=== PATIENT | male | born 1930 | race Caucasian/White ===

== ENCOUNTER 2020-05-30 21:49 | Observation (INO) | payer MEDICARE ==
[2020-05-31 00:41] VITALS: BMI 24.7
[2020-05-31] MEDS ORDERED: Acetaminophen 650 MG Suppository PR PRN (01:36)
[2020-05-31] MEDS ORDERED: Nitroglycerin 0.4 MG TAB (25 Tab Bottle) SL PRN (01:40)
[2020-05-31] MEDS ORDERED: Polyvinyl Alcohol 1.4%/Povidone 0.6% Opth Drops EA EYE PRN (01:43)
[2020-05-31] MEDS ORDERED: Aspirin Chewable 81 MG TAB PO SCH (02:00)
--- NOTE | 2020-05-31 02:12 | PDOC.HHP ---
Hospitalist HPI - History of Present Illness History of Present Illness: ADMISSION DATE: 05/31/2020 TIME OF ASSESSMENT: 0130 PRIMARY CARE PHYSICIAN: Out of town CHIEF COMPLAINT: Fatigue HPI: This is an 89-year-old gentleman who presented to the emergency department in [place] with complaints of sudden onset exhaustion/fatigue. The patient states that it lasted a few minutes and was followed by a sudden nausea. He states he became worried that it might be signs of Covid and therefore opted to come to the emergency department in order to be tested. He denies experiencing any chest pain palpitations or shortness of breath in any moment. Denies having any recent fevers, chills or sweats. States he has had a very good appetite in recent days without any nausea or vomiting. No abdominal pain or bowel changes. Denies any urinary symptoms. On arrival to the emergency department he is feeling significantly better. He had laboratory studies done and after speaking with the ED physician the decision was made to work him up for possible cardiac event. EKG done in the emergency department prior to transfer showed a heart rate of 72, normal sinus rhythm with unifocal PVCs. Repeat EKG showed sinus bradycardia with a rate of 56. He was given aspirin 324 mg p.o. x1 and transferred here for further cardiac work-up. A chest x-ray done in the emergency department showed no evidence of acute cardiopulmonary process. Labs showed a white cell count of 4.5, hemoglobin 14, hematocrit 43.5, platelets 171, sodium 139, potassium 3.5, BUN 21, creatinine 0.98, GFR 72, glucose 141, LFTs normal. Lipase normal. Troponin negative x2. PAST MEDICAL HISTORY: 1. Restless leg syndrome 2. Dementia 3. History of prostate cancer 4. GERD 5. Hard of hearing. PAST SURGICAL HISTORY: 1. Cholecystectomy SOCIAL HISTORY: Patient lives alone and denies any history of tobacco use alcohol consumption or drug use. FAMILY HISTORY: Noncontributory. No history of heart disease in his family. ALLERGIES: No known drug allergies CURRENT MEDICATIONS: 1. Gabapentin 300 mg p.o. 3 times daily 2. Donepezil 5 mg p.o. daily 3. Omeprazole 40 mg p.o. daily 4. Ropinirole 3 mg p.o. daily 5. Artificial tears 6. Latanoprost 7. Timolol 8. Carbidopa/levodopa 25/100 mg 1 tablet at bedtime - Exam General Appearance: NAD, awake alert Eye: PERRL, anicteric sclera ENT: normocephalic atraumatic, no oropharyngeal lesions, moist mucosa Neck: supple, symmetric, no lymphadenopathy Heart: RRR, no murmur, no gallops, no rubs, normal peripheral pulses Respiratory: CTAB, no wheezes, no rales, no ronchi, normal chest expansion Gastrointestinal: soft, non-tender, non-distended, normal bowel sounds, no guarding, no rigidity Extremities: no edema Skin: normal turgor, no lesions, no rashes Neurological: cranial nerve grossly intact, normal sensation to touch Musculoskeletal: normal tone, normal strength, no muscle wasting Psychiatric: normal affect, normal behavior, A&O x 3 Hospitalist H&P A/P - Problem (1) Fatigue Code(s): R53.83 - OTHER FATIGUE Status: Acute (2) Nausea Code(s): R11.0 - NAUSEA Status: Acute (3) Restless leg syndrome Status: Chronic (4) GERD (gastroesophageal reflux disease) Code(s): K21.9 - GASTRO-ESOPHAGEAL REFLUX DISEASE WITHOUT ESOPHAGITIS Status: Chronic (5) Dementia Code(s): F03.90 - UNSPECIFIED DEMENTIA WITHOUT BEHAVIORAL DISTURBANCE Status: Chronic (6) History of prostate cancer Code(s): Z85.46 - PERSONAL HISTORY OF MALIGNANT NEOPLASM OF PROSTATE Status: Chronic - Plan Plan: Patient with acute feeling of exhaustion that resolved after a few minutes and was followed by nausea without vomiting. Denies any chest pain or sob. No palpitations or other symptoms. Afebrile without any respiratory symptoms. Transferred for ACS work-up. We will continue cardiac monitoring Keep patient NPO Continue aspirin. Continue to trend troponins Will check lipid panel with AM labs, mg and TSH Cardiology consult placed as per Dr. Reed recommendations. Patient resting and symptom free at present.
[2020-05-31] MEDS ORDERED: Gabapentin 300 MG CAP PO SCH (02:15)
[2020-05-31] MEDS: Acetaminophen 325 MG TAB PO PRN (03:19)
[2020-05-31 03:36] LABS: #Eosinphils 0.1 thou/uL (0.0-0.7); #Lymphocytes 0.7 thou/uL (1.20-3.40); #Monocytes 0.4 thou/uL (0.11-0.59); #Neutrophils 2.1 thou/uL (1.40-6.50); %Basophils 0.1 % (0.0-1.0); %Eosinophils 4.3 % (0.0-10.0); %Lymphocytes 20.3 % (21.0-51.0); %Monocytes 12.1 % (0.0-10.0); %Neutrophils 63.3 % (42.0-75.0); Hemoglobin 13.4 g/dL (14.0-18.0); Mean Corpuscular HGB CONC 34.9 g/dL (32.0-36.0); Mean Corpuscular Hemoglobin 33.4 pg (27.0-31.0); Mean Corpuscular Volume 95.5 fL (78.0-98.0); Mean Platelet Volume 7.5 fL (7.4-10.4); Platelet Count 157 thou/uL (130-400); RBC Distribution Width 11.2 % (11.5-14.5); Red Blood Cell (RBC) Count 4.03 mill/uL (4.70-6.10); White Blood Cell (WBC) Count 3.3 thou/uL (4.8-10.8)
[2020-05-31 03:56] LABS: Anion Gap 11 mmol/L (10-20); BUN (Urea Nitrogen) 22 mg/dL (8.4-25.7); Calc. Creatinine Clearance 72 mL/min (70-130); Calcium 8.9 mg/dL (7.8-10.44); Carbon Dioxide 27 mmol/L (23-31); Cardiac Risk 4.3 (Less than 4.5); Chloride 106 mmol/L (98-107); Cholesterol 172 mg/dl (< 200 Desired); Glucose 172 mg/dL (83-110); HDL Cholesterol 40 mg/dL (>60 Neg Risk); LDL Cholesterol, Calculated 106 mg/dL; Potassium 3.3 mmol/L (3.5-5.1); Sodium 141 mmol/L (136-145); Triglycerides 129 mg/dL (Less than 150)
[2020-05-31 03:58] LABS: Troponin I 0.016 ng/mL (< 0.028)
[2020-05-31] MEDS ORDERED: Potassium Chloride 20 MEQ TAB PO SCH (04:15)
[2020-05-31 04:51] LABS: Troponin I Less than 0.010 ng/mL (< 0.028)
[2020-05-31] MEDS ORDERED: FLU VACC QS2020-21(65YR UP)/PF 240 MCG/0.7 ML SYRINGE IM ONE (09:00)
[2020-05-31] MEDS ORDERED: Famotidine 20 MG TAB PO SCH (09:00)
[2020-05-31] MEDS: Aspirin 81 mg Enteric Coated Tablet PO SCH (09:49)
[2020-05-31] MEDS: Donepezil HCl 5 MG TAB PO SCH (09:50)
[2020-05-31] MEDS: Gabapentin 300 MG CAP PO SCH ×3 (09:51→22:29)
[2020-05-31] MEDS: rOPINIRole HCl 1 MG TAB PO SCH (09:52)
[2020-05-31] MEDS: Potassium Chloride 20 MEQ TAB PO SCH ×2 (11:15→17:57)
[2020-05-31 12:08] LABS: Phosphorus 3.7 mg/dL (2.3-4.7)
[2020-05-31 13:08] LABS: Bacteria/HPF None Seen HPF (None Seen); Bilirubin Negative (Negative); Blood, Urine Negative (Negative); Clarity Clear (Clear); Glucose, Urine (Dipstick) Normal (Negative); Ketone, Urine Negative (Negative); Leukocyte Negative Leu/uL (Negative); Nitrite Negative (Negative); Protein, Urine (Dipstick) Negative (Neg-Trace); RBC/HPF 0-3 HPF (0-3); Specific Gravity, Urine 1.011 (1.002-1.036); Squamous Epithelial None Seen HPF (0-3); Urobilinogen Normal mg/dL (Less than 2); WBC/HPF 0-3 HPF (0-3); pH, Urine 6.5 (5.0-9.0)
[2020-05-31 13:11] LABS: Urine Culture Reflex No No
[2020-05-31 15:52] LABS: SARS-CoV-2 MS2 Positive; SARS-CoV-2 N Gene Negative; SARS-CoV-2 S Gene Negative; SARS-CoV-2 by NAA Not Detected (NotDetected); SARS-CoV-2 orf1ab Negative
[2020-05-31] MEDS ORDERED: Carbidopa/Levodopa 25-100 mg Tablet PO SCH (17:00)
--- NOTE | 2020-05-31 17:30 | ULT ---
EXAM: Carotid ultrasound HISTORY: Near syncope COMPARISON: None TECHNIQUE: Multiplanar grayscale and color Doppler images were obtained in a carotid ultrasound. Spec tral analysis of the Doppler waveforms were performed. FINDINGS: A large amount of plaque is seen in the proximal right ICA and a small amount of plaque is seen on th e left. The Doppler waveforms are normal in the visualized vessels. Peak systolic velocity in the right internal carotid artery 324 cm/s. Peak systolic velocity in the right common carotid artery 58 cm/s. The right ICA/CCA ratio is 5.6. Peak systolic velocity in the left internal carotid artery 107 cm/s. Peak systolic velocity in the left common carotid artery 66 cm/s. The left ICA/CCA ratio is 1.6. Both vertebral arteries demonstrate antegrade flow without focal stenosis IMPRESSION: Severe stenosis of greater than 70% per velocity criteria and systolic to diastolic ratio in the righ t internal carotid artery. A CTA of the neck is recommended for further evaluation.
[2020-05-31] MEDS: Timolol 0.5% Ophth Soln 5 ml Bottle EA EYE SCH (22:29)
[2020-05-31] MEDS: Latanoprost 0.005% Ophth Soln 2.5 ml Bottle EA EYE SCH (22:29)
[2020-05-31] MEDS ORDERED: Sodium Chloride 0.9% 1,000 ML IV SCH (23:55)
[2020-06-01] MEDS: Acetaminophen 325 MG TAB PO PRN (01:23)
[2020-06-01 05:00] LABS: Potassium 4.2 mmol/L (3.5-5.1)
[2020-06-01 07:23] VITALS: TEMP 97.5
--- NOTE | 2020-06-01 08:30 | CT ---
CT ANGIOGRAM NECK WITH CONTRAST: DATE: 06/01/2020 HISTORY: 89-year-old male with severe carotid stenosis found on carotid Doppler ultrasound. Near-syncope. At 8:27 AM, 06/01/2020, Dr. Alcala notified Dr. Lopez of the critical stenosis on the right and severe s tenosis on the left by telephone. TECHNIQUE: After IV contrast injection, arterial bolus chasing technique scan performed from AP window to skull base Coronal and sagittal 3-D MIP reconstructions. FINDINGS: Brachiocephalic: Normal Right subclavian: Normal Left subclavian: No high-grade stenosis. Right common carotid: No high-grade stenosis. Left common carotid: Normal proximal and mid segments. Soft plaque at distal segment causing stenosis , which is mild beginning 1.5 cm proximal to the carotid bifurcation, then becomes severe, approximately 75%, at the carotid bulb. Right vertebral: Calcified plaque at origin causing at least mild stenosis. No stenosis identified in the rest of this vessel. Left vertebral: Dominant. Prominent calcified plaque at origin causing at least mild stenosis. No adia nosis in the rest of the vessel. Right internal carotid: Atheromatous plaque, both heavily calcified and noncalcified components from origin to approximately 1 cm distal to the origin, where there is very severe, approximately 90-99% stenosis. The rest of the right internal carotid artery is slightly diffusely smaller in caliber comp ared to the left. Left internal carotid: 75% stenosis at the proximal portion of left carotid bulb as mentioned above. The rest of the left internal carotid does not have significant stenosis. There is mild plaque in the proximal left internal carotid causing mild stenosis. IMPRESSION: 1) critical stenosis at proximal right internal carotid artery. 2) 75% stenosis at distal most left common carotid artery at carotid bulb
[2020-06-01] MEDS: Potassium Chloride 20 MEQ TAB PO SCH (08:52)
[2020-06-01] MEDS: Aspirin 81 mg Enteric Coated Tablet PO SCH (08:58)
[2020-06-01] MEDS: Gabapentin 300 MG CAP PO SCH (08:59)
[2020-06-01] MEDS: Donepezil HCl 5 MG TAB PO SCH (09:00)
[2020-06-01] MEDS ORDERED: Cyanocobalamin (Vitamin B-12) 1,000 MCG TAB PO SCH (09:00)
[2020-06-01] MEDS ORDERED: Timolol 0.5% Ophth Soln 5 ml Bottle EA EYE SCH (09:00)
[2020-06-01] MEDS: Latanoprost 0.005% Ophth Soln 2.5 ml Bottle EA EYE SCH (09:01)
[2020-06-01] MEDS: Timolol 0.5% Ophth Soln 5 ml Bottle EA EYE SCH (09:01)
[2020-06-01] MEDS: rOPINIRole HCl 1 MG TAB PO SCH (09:09)
[2020-06-01 11:50] VITALS: BP 192/99
[2020-06-01] MEDS ORDERED: Iopamidol-370 76% 500 ML 1 ML ONE (12:47)
--- NOTE | 2020-06-01 13:26 | CON ---
DATE OF CONSULTATION: 06/01/2020 REQUESTING PHYSICIAN: Dr. Lopez. CHIEF COMPLAINT: Fatigue. HISTORY OF PRESENT ILLNESS: The patient is an 89-year-old man with minimal past medical history. He describes sitting at his computer when he suddenly felt an overwhelming sense of fatigue and tiredness that was followed by some mild nausea, but no vomiting. He had not had any other symptoms either focal or constitutional. He was concerned that this might represent onset of COVID symptoms and he sought medical care at a local emergency room. His COVID testing proved to be negative. There was a question raised about whether this might be an atypical presentation of coronary event and he was transferred here and placed on telemetry for observation. His troponins trended negative. Screening carotid ultrasonography suggested carotid disease worse on the right than on the left and this was corroborated by CT angiography. On my questioning, the patient denies any antecedent eye, facial, speech, or extremity symptoms consistent with TIAs. PAST MEDICAL HISTORY: Significant for restless legs syndrome, prostate cancer, GE reflux symptoms, and "dementia." HOME MEDICATIONS: 1. Neurontin 300 mg t.i.d. 2. Donepezil 5 mg a day. 3. Omeprazole 40 mg a day. 4. Ropinirole 3 mg a day. 5. Latanoprost eye drops. 6. Timolol eye drops. 7. Sinemet 25/100 one tablet at bedtime. 8. Artificial tears. ALLERGIES: DENIES ANY MEDICAL ALLERGIES. SOCIAL HISTORY: Does not smoke. REVIEW OF SYSTEMS: Negative for chest pain. Negative for shortness of breath. Negative for TIA symptoms. PHYSICAL EXAMINATION: GENERAL: He is a fairly robust appearing man, who appears somewhat younger than his stated age. VITAL SIGNS: Heart rate 68, blood pressure 142/82, room air O2 saturations 97%, his T-max this hospitalization has been 98.3. He is 6 feet tall and weighs 180 pounds. NECK: He has bilateral carotid bruits. No JVD. HEENT: No xanthelasma. LUNGS: Clear breath sounds. HEART: Regular rate and rhythm without murmur or gallop. NEUROLOGIC: Cranial nerves 2 through 12 are grossly intact with the exception of being hard of hearing. Upper and lower extremity strength is grossly normal. LABORATORY EXAM: Showed a white count of 3.3, hemoglobin 13.4, platelet count 157,000. Potassium was 3.3, otherwise electrolytes were normal; glucose was 172; calcium 8.9. Troponins were negative. Magnesium was 2.0. Urinalysis was clean. COVID on the was negative. His echocardiogram showed an LVEF around 55% to 60% with suggestion of diastolic dysfunction. His carotid ultrasound showed bilateral plaque worse on the right than on the left. On the right, internal carotid velocities were 15.4, 324.2, and 161. Common carotid velocities of 58, 39, and 27 with a ratio of 5.64. On the left, internal carotid velocities were 107, 80, and 76, and common carotid velocities of 66, 50, and 46 for a ratio of 1.62. CT angiography showed heavy plaque burden in the right bulb and proximal internal carotid artery associated with focal high-grade stenosis on the order of about 90% or 95%. The left common carotid had a fairly smooth focal lesion in it that by report was called on the order of 70% or 75%, but by my measurements, works out to about 50%. IMPRESSION AND RECOMMENDATIONS: Coincidental finding of high-grade right carotid stenosis, more modest disease on the left in an elderly man, who still lives independently and I would think he would tolerate endarterectomy well. He wishes to have [place] at home and will readmit next week for right carotid endarterectomy. Job ID: [id number]
[2020-06-01] MEDS ORDERED: rOPINIRole HCl 1 MG TAB PO SCH (21:00)
[2020-06-01 22:47] LABS: SARS-CoV-2 MS2 Positive; SARS-CoV-2 N Gene Negative; SARS-CoV-2 S Gene Negative; SARS-CoV-2 by NAA Not Detected (NotDetected); SARS-CoV-2 orf1ab Negative
--- NOTE | 2020-06-02 08:13 | PDOC.DS.DS ---
Provider - Provider Date of Admission: 05/31/20 00:23 Date of Discharge: 06/01/20 Admitting Provider: Dennis Pitt MD Consultations: Other (Cardiovascular) Primary Care Physician: OUT OF TOWN Course - Hospital Course Hospital Course: Patient is a 89-year-old male with prostate cancer and dementia presented to the hospital with a near syncopal episode and generalized weakness. Please refer to the history and physical for further details. The patient was admitted to the telemetry unit with a diagnosis of near syncope. Echocardiogram showed ejection fraction of 55 to 60% with diastolic dysfunction, mild to moderate mitral regurgitation, moderate tricuspid regurgitation and mild to moderate aortic regurgitation. Carotid Doppler showed severe stenosis in the right internal carotid artery. CT angiogram of the neck next morning showed critical stenosis of the proximal right internal carotid artery and 75% stenosis at the distal left common carotid artery. He was evaluated by cardiovascular surgeon. Patient will be scheduled for carotid endarterectomy next week. He was advised to take 81 mg aspirin on a daily basis. Final diagnosis: Near syncope due to carotid artery stenosis History of prostate cancer Dementia Restless leg syndrome GERD Chronic anemia probably due to nutritional deficiency Hypokalemia replaced CKD stage II Resuscitation Status: 05/31/20 01:36 Resuscitation Status Routine Co-Sign Provider: Resuscitation Status: FULL: Full Resuscitation - Labs Lab Results: 05/31/20 02:54 06/01/20 03:54 - Physical Exam Vitals: Weight Weight 182 lb 4.8 oz Physical Exam: The patient was seen and examined on the day of discharge. Plan - Discharge Medications Prescriptions: Aspirin [Aspirin EC] 81 mg PO DAILY #30 tablet. Cyanocobalamin (Vitamin B-12) [Vitamin B-12] 1,000 mcg PO DAILY #30 tab Home Medications: Medication Instructions Recorded Confirmed Type Carbidopa/Levodopa 1 tab PO HS 05/31/20 06/01/20 History [Carbidopa-Levodopa 25-100 Tab] Donepezil HCl [Aricept] 5 mg PO QAM 05/31/20 05/31/20 History Gabapentin 300 mg PO ASDIR 05/31/20 06/01/20 History Latanoprost [Xalatan 0.005% Ophth 1 applic EA EYE HS 05/31/20 06/01/20 History Soln] Omeprazole 40 mg PO DAILY 05/31/20 05/31/20 History Timolol Maleate/PF [Timolol 1 each EA EYE PRN PRN 05/31/20 06/01/20 History Maleate 0.5% Eye Drop] rOPINIRole HCl 3 mg PO HS 05/31/20 06/01/20 History Cyanocobalamin (Vitamin B-12) 1,000 mcg PO DAILY #30 tab 06/01/20 06/01/20 Rx [Vitamin B-12] Lorazepam 2 mg PO HS PRN 06/01/20 06/01/20 History Omeprazole 40 mg PO ASDIR 06/01/20 06/01/20 History Aspirin [Aspirin EC] 81 mg PO DAILY #30 tablet. 06/02/20 Rx Allergies: No Known Drug Allergies Allergy (Verified 06/01/20 14:50) - Discharge Instructions Discharge Instructions:: Please take Aspirin and Vitamin B12 daily- over the counter Fasting lipid profile as outpt - Follow up Plan Referrals: [facility],OUT OF [Primary Care Provider] - 7 Days (Please follow up with your primary care provider in 7days. Call the office to schedule an appointment.) Steven Walker MD [Active] - 06/06/20 (Brandi will receive a call from Dr. Beverly's office regarding additional pre-op instructions for procedure on Saturday.) Disposition: HOME Quality - Care Measures CORE MEASURES:: N/A
== END 2020-06-01 13:21 | disposition home or self-care (01) ==
LOC: 2NO 05-31 00:23
PROVIDERS: ADMIT Student in an Organized Health Care Education/Training Program; ATTEND Internal Medicine
DX: I65.29 Occlusion and stenosis of unspecified carotid artery (principal); F03.90 Unspecified dementia, unspecified severity, without behavioral disturbance, psychotic disturbance, mood disturbance, and anxiety; G25.81 Restless legs syndrome; K21.9 Gastro-esophageal reflux disease without esophagitis; D64.9 Anemia, unspecified; E87.6 Hypokalemia; N18.2 Chronic kidney disease, stage 2 (mild); Z79.82 Long term (current) use of aspirin; Z79.899 Other long term (current) drug therapy; Z85.46 Personal history of malignant neoplasm of prostate; Z20.828 Contact with and (suspected) exposure to other viral communicable diseases
CPT/HCPCS: 70498; 80048; 80061; 81001; 82607; 82746; 83735; 83880; 84100; 84132; 84443; 84484 ×2; 85025; 93306; 93880; 94760 ×2; 97139 ×2; U0003 ×2; 36415; 87635; G0378; Q9967

== ENCOUNTER 2020-06-06 06:09 | Inpatient (IN) | payer MEDICARE ==
[2020-06-01 14:50] VITALS: BMI 25.3
[2020-06-06] MEDS ORDERED: Protamine Sulfate 50 MG/5 ML VIAL ONE (06:30)
[2020-06-06] MEDS ORDERED: Heparin 5,000 UNITS/ML VIAL ONE (06:30)
[2020-06-06] MEDS ORDERED: Fentanyl 100 MCG/2 ML VIAL ONE (06:36)
[2020-06-06] MEDS ORDERED: Midazolam HCl 2 mg/2 ml Vial ONE (06:36)
[2020-06-06] MEDS ORDERED: Ondansetron HCl/PF 4 MG/2 ML Vial IVP PRN (08:52)
[2020-06-06] MEDS ORDERED: Acetaminophen 325 MG TAB PO PRN (09:11)
[2020-06-06] MEDS ORDERED: Ondansetron PF 4 MG/2 ML Vial IVP PRN (09:11)
[2020-06-06] MEDS ORDERED: HYDROcodone/Acetaminophen 5/325 mg Tablet PO PRN ×2 (09:11)
[2020-06-06] MEDS ORDERED: Vecuronium 10 MG VIAL ONE (10:15)
[2020-06-06] MEDS ORDERED: PHENYLEPHRINE-NS 100 MCG/ML 10 ML SYRINGE ONE (10:15)
[2020-06-06] MEDS ORDERED: Dexamethasone 20 MG/5 ML VIAL ONE (10:15)
[2020-06-06] MEDS ORDERED: Lidocaine 1% PF 5 ML VIAL ONE ×2 (10:15)
[2020-06-06] MEDS ORDERED: PROPOFOL 200 MG/20 ML VIAL ONE (10:15)
[2020-06-06] MEDS ORDERED: Ondansetron PF 4 MG/2 ML Vial ONE (10:15)
[2020-06-06] MEDS ORDERED: Ketorolac Tromethamine 30 MG/ML VIAL ONE (10:15)
[2020-06-06] MEDS ORDERED: ePHEDrine 50 MG/ML VIAL ONE (10:15)
[2020-06-06] MEDS ORDERED: Glycopyrrolate 0.2 MG/ML 5 ML SYRINGE ONE (10:15)
--- NOTE | 2020-06-06 11:07 | OP ---
DATE OF PROCEDURE: 06/06/2020 PROCEDURE PERFORMED: Right carotid endarterectomy. PREOPERATIVE DIAGNOSIS: Bilateral carotid stenosis, right greater than left. POSTOPERATIVE DIAGNOSIS: Bilateral carotid stenosis, right greater than left. ANESTHESIA: General endotracheal anesthesia. INDICATIONS: The patient is an 89-year-old man, admitted after an episode of profound tiredness and slight nausea, that he thought might represent COVID infection. In the course of his evaluation, he had carotid studies, that demonstrated extensive plaque burden in the proximal right internal carotid artery associated with a very high-grade stenosis. He had more modest plaque burden and stenosis at the left carotid bulb causing about 50% stenosis of the distal common carotid. After discussing options with him, he is now taken to the operating room for right carotid endarterectomy. FINDINGS: Heavy plaque burden at the proximal ICA associated with a high-grade stenosis. Good ICA backbleeding. Pre-shunt clamp time 6 minutes. Shunt time 22 minutes. Post-shunt clamp time 3 minutes. DESCRIPTION OF PROCEDURE: After informed consent was obtained, the patient was taken to the operating room and placed in supine position on the operating table. After the induction of general anesthesia, the patient's neck was extended and rotated slightly towards the left. His right neck was then prepped and draped in sterile fashion. An oblique incision was made in the skin crease on the right neck using a scalpel and electrocautery. The dissection was carried through the platysma, anteromedial to the sternocleidomastoid muscle and internal jugular vein. The common carotid artery was dissected free from its sheath and the vagus nerve and looped with a vessel loop. The facial vein and other venous tributaries to the jugular system crossing the operative field were ligated and divided. Branches of the external carotid system that coursed across the operative field were ligated and divided. The dissection was carried cephalad, beyond the level of the hypoglossal nerve and digastric muscle, ligating and dividing the sling vessels. The external carotid system was looped in mass with a vessel loop and the internal carotid artery was extensively mobilized. After adequate circulation time of heparin, the internal carotid, common carotid, and external carotid systems were sequentially occluded. A longitudinal arteriotomy was made in the distal common carotid artery and extended proximally and distally with Perkins scissors. An endarterectomy plane was developed at the bulb, plaque was transected at the common carotid level, everted from the external carotid system and then broken off distally in the internal carotid. Attempts at achieving a smooth feather distally were eventually abandoned and after insertion of carotid shunt, the step-off where the plaque broke off distally was tacked in place with several interrupted mattress Prolene sutures that were oriented longitudinally with the knots on the outside of the vessel. The endarterectomy bed was forcefully irrigated and freed of any remaining debris. The arteriotomy was then sewn from either apex with running 6-0 Prolene suture. About a half of cm of arteriotomy left so at the common carotid level. The shunt was clamped and removed. The remaining arteriotomy was sewn. The vessels were forward and back bled, left flushing of any air or residual debris at the arteriotomy or into the external carotid system. The suture line was secured. Antegrade flows first into the external carotid and then into the internal carotid. Bleeding points on the common carotid and near the distal apex of the internal carotid were controlled with [id number] Prolene sutures and then the wound packed off. After several minutes, the packing was removed and hemostasis appeared adequate without the reversal of heparin. The platysma was reapproximated with running 3-0 Vicryl, the skin was closed with a running 5-0 Vicryl subcuticular suture and Steri-Strips. The wound was dressed. The patient was awakened and extubated in the operating room and taken to the recovery area in good condition, moving all extremities to command. Job ID: [id number]
[2020-06-06] MEDS ORDERED: Timolol 0.5% Ophth Soln 5 ml Bottle EA EYE PRN (12:07)
[2020-06-06] MEDS: Sodium Chloride 0.9% 1,000 ML IV SCH ×2 (13:50→19:23)
[2020-06-06] MEDS ORDERED: Gabapentin 300 MG CAP PO SCH ×2 (17:00→21:00)
[2020-06-06] MEDS ORDERED: hydrALAZINE 20 MG/ML VIAL SLOW IVP PRN (19:32)
[2020-06-06] MEDS ORDERED: Cepastat Lozenges 1 LOZ PO PRN (20:04)
[2020-06-06] MEDS ORDERED: Latanoprost 0.005% Ophth Soln 2.5 ml Bottle EA EYE SCH (21:00)
[2020-06-06] MEDS ORDERED: rOPINIRole HCl 2 MG TAB PO SCH (21:00)
[2020-06-06] MEDS ORDERED: Carbidopa/Levodopa 25-100 mg Tablet PO SCH (21:00)
[2020-06-07 00:40] VITALS: BP 97/63
[2020-06-07] MEDS: Sodium Chloride 0.9% 1,000 ML IV SCH (06:40)
[2020-06-07 08:11] VITALS: TEMP 98.5
[2020-06-07] MEDS ORDERED: Donepezil HCl 5 MG TAB PO SCH (09:00)
[2020-06-07] MEDS ORDERED: Cyanocobalamin (Vitamin B-12) 1,000 MCG TAB PO SCH (09:00)
[2020-06-07] MEDS ORDERED: Aspirin Chewable 81 MG TAB PO SCH (09:00)
[2020-06-07] MEDS ORDERED: Aspirin 81 mg Enteric Coated Tablet PO SCH (09:00)
--- NOTE | 2020-06-08 06:42 | DIS ---
DATE OF ADMISSION: 06/06/2020 DATE OF DISCHARGE: 06/07/2020 PRINCIPAL DIAGNOSIS: Right carotid stenosis. PROCEDURES PERFORMED: Right carotid endarterectomy. HISTORY OF PRESENT ILLNESS AND HOSPITAL COURSE: The patient is an 89-year-old man with little past medical history. He recently had an episode of profound tiredness and some mild nausea. Out of concern that this might represent early manifestations of a COVID infection, he sought medical treatment. He was COVID negative, but in the course of his evaluation, he had carotid studies and a CTA demonstrated very high-grade lesion in his right carotid at the origin of the ICA and more modest disease on the left side, although the radiologist's report described the left side as being about 70%. By my review, I thought it was closer to about 50%. He had no localizing symptoms to suggest TIAs. He was allowed to go home for the holidays and then was electively admitted yesterday for right carotid endarterectomy. Other than some persistent bleeding from skin edges resulting in some bruising of his wound this morning, he had an uneventful overnight stay in the intensive care unit. Today on postoperative day 1, his blood pressure has been under control. He is neurologically intact. His voice is normal. His tongue is midline and his smile is symmetric. We will send him home now to resume his home medications that include aspirin and I have written a prescription for [place] as needed for pain. Job ID: [id number]
== END 2020-06-07 10:50 | disposition home or self-care (01) | DRG 38 ==
LOC: SURG A 06:09 → CCU 13:42
PROVIDERS: ADMIT Thoracic Surgery (Cardiothoracic Vascular Surgery); ATTEND Thoracic Surgery (Cardiothoracic Vascular Surgery)
PROC: 03CK0ZZ Extirpation of Matter from Right Internal Carotid Artery, Open Approach (ICD-10-PCS; principal; 2020-06-06)
DX: I65.23 Occlusion and stenosis of bilateral carotid arteries (principal); L76.22 Postprocedural hemorrhage of skin and subcutaneous tissue following other procedure; Z20.828 Contact with and (suspected) exposure to other viral communicable diseases; Y83.8 Other surgical procedures as the cause of abnormal reaction of the patient, or of later complication, without mention of misadventure at the time of the procedure; G25.81 Restless legs syndrome; K21.9 Gastro-esophageal reflux disease without esophagitis; F03.90 Unspecified dementia, unspecified severity, without behavioral disturbance, psychotic disturbance, mood disturbance, and anxiety; Z85.46 Personal history of malignant neoplasm of prostate; Z79.899 Other long term (current) drug therapy
CPT/HCPCS: 94640; J1100; J1642; J1644; J1885; J2250; J2405; J2704; J2720; J3010; J3490; J7620